=== PATIENT | female | born 1935 | race Two or more races ===

== ENCOUNTER 2021-02-08 12:50 | Inpatient (IN) | payer OTHER ==
[~2021-02-08] VITALS: Ht 165.1 cm; Wt 72.0 kg
[2021-02-08] MEDS ORDERED: ONDANSETRON HCL 4 MG/2 ML VIAL IV ONE (15:30)
[2021-02-08] MEDS ORDERED: HYDROmorphone HCL 2 MG/ML VL IV ONE (15:30)
[2021-02-08] MEDS ORDERED: SODIUM CHLORIDE 0.9% 1,000 ML IV ONE ×2 (15:30→18:30)
[2021-02-08 19:31] LABS: Basophils # (auto) 0 10 ^3/uL (0-0.2); Basophils % (auto) 0.1 % (0.0-2.0); Eosinophils # (auto) 0 10 ^3/uL (0-0.8); Eosinophils % (auto) 0.1 % (0.0-7.0); Hematocrit 36.5 % (36.0-46.0); Hemoglobin 12.3 g/dL (12.2-16.2); Lymphocytes # (auto) 1.1 10 ^3/uL (0.4-5.4); Mean Corpuscular Hemoglobin 30.2 pg (28.0-32.0); Mean Corpuscular Hgb Conc. 33.7 g/dL (32.0-36.0); Mean Corpuscular Volume 89.5 fL (80.0-100.0); Monocytes # (auto) 0.7 10 ^3/uL (0-1.3); Monocytes % (auto) 4.2 % (0.0-12.0); Neutrophils # (auto) 15.7 10 ^3/uL (1.6-8.6); Neutrophils % (auto) 89.6 % (37.0-80.0); Red Blood Cells 4.08 10^6/uL (4.0-5.20); Red Cell Distribution Width 14.1 % (11.8-14.3); White Blood Cell 17.5 10^3/uL (4.4-10.8)
[2021-02-08 19:49] LABS: Albumin 2.8 g/dL (3.4-5.0); Anion Gap 9 (5-15); Blood Urea Nitrogen 29 mg/dL (7-18); Calcium 8.4 mg/dL (8.5-10.1); Carbon Dioxide 20 mmol/L (21-32); Chloride 110 mmol/L (98-107); Glucose 219 mg/dL (74-106); Magnesium 2.2 mg/dL (1.6-2.6); Potassium 4.3 mmol/L (3.5-5.1); Sodium 139 mmol/L (136-145)
[2021-02-08 19:51] LABS: BUN/Creatinine Ratio 28.7; GFR African American 67 mL/min; GFR Non-African American 56 mL/min
[2021-02-08 19:54] LABS: Alanine Aminotransferase 27 U/L (13-56); Alkaline Phosphatase 56 U/L (45-117); Aspartate Aminotransferase 31 U/L (15-37); Total Protein 6.3 g/dL (6.4-8.2)
[2021-02-08] MEDS ORDERED: DEXTROSE (50%) 50ML SYRG IV PRN (22:15)
[2021-02-08] MEDS ORDERED: DOCUSATE SOD 100 MG CAP PO PRN (22:15)
[2021-02-08] MEDS ORDERED: ONDANSETRON HCL 4 MG/2 ML VIAL IV PRN (22:15)
[2021-02-08] MEDS ORDERED: ACETAMINOPHEN 325 MG TAB PO PRN (22:15)
[2021-02-08] MEDS ORDERED: NITROGLYCERIN 0.4 MG SL TAB SL PRN (23:15)
[2021-02-08] MEDS ORDERED: MORPHINE SULFATE INJECTION 2 MG/ML SYRG IV PRN (23:15)
[2021-02-08] MEDS: SODIUM CHLORIDE 0.9% 1,000 ML IV SCH (23:59)
[2021-02-09 01:20] VITALS: BP 158/66
[2021-02-09] MEDS ORDERED: SIMV-8 PO (02:52)
[2021-02-09] MEDS ORDERED: LISI20TA28 PO (02:52)
[2021-02-09 05:00] VITALS: BP 159/67
[2021-02-09] MEDS: ACCU-CHEK COMFORT CURVE STRIP VI SCH ×4 (06:18→22:19)
[2021-02-09] MEDS: HYDROcodone-ACET 5/325MG TAB PO PRN ×3 (06:24→20:43)
[2021-02-09] MEDS: InsuLIN REG 1unit/0.01ml Soln (100units/ml) SC SCH ×4 (06:24→22:27)
[2021-02-09 06:37] LABS: Basophils # (auto) 0 10 ^3/uL (0-0.2); Basophils % (auto) 0.1 % (0.0-2.0); Eosinophils # (auto) 0 10 ^3/uL (0-0.8); Lymphocytes # (auto) 1.7 10 ^3/uL (0.4-5.4); Lymphocytes % (auto) 15.1 % (10.0-50.0); Mean Corpuscular Hemoglobin 30.1 pg (28.0-32.0); Mean Corpuscular Hgb Conc. 34.2 g/dL (32.0-36.0); Mean Corpuscular Volume 88.1 fL (80.0-100.0); Monocytes # (auto) 0.9 10 ^3/uL (0-1.3); Monocytes % (auto) 7.8 % (0.0-12.0); Neutrophils # (auto) 8.6 10 ^3/uL (1.6-8.6); Red Blood Cells 3.64 10^6/uL (4.0-5.20); Red Cell Distribution Width 13.6 % (11.8-14.3); White Blood Cell 11.2 10^3/uL (4.4-10.8)
[2021-02-09 06:51] LABS: Albumin 2.7 g/dL (3.4-5.0); Calcium 8.1 mg/dL (8.5-10.1); Potassium 4.4 mmol/L (3.5-5.1)
[2021-02-09 06:57] LABS: BUN/Creatinine Ratio 27.8; Bilirubin, Total 0.8 mg/dL (0.2-1.0); Total Protein 5.8 g/dL (6.4-8.2)
[2021-02-09 09:00] VITALS: BP 145/76
[2021-02-09] MEDS: ENOXAPARIN SOD 40 MG/0.4 ML SYRINGE SC SCH (09:19)
[2021-02-09] MEDS: FAMOTIDINE (10MG/ML) 2ML VL IV SCH (09:19)
[2021-02-09] MEDS: MULTIPLE VITAMIN TAB PO SCH (09:21)
[2021-02-09] MEDS: ASCORBIC ACID 500 MG TAB PO SCH ×2 (09:21→22:27)
[2021-02-09] MEDS: ZINC SULFATE 220mg CAP or TAB PO SCH (09:22)
[2021-02-09] MEDS: LISINOPRIL 20 MG TAB PO SCH (09:23)
[2021-02-09 09:37] LABS: INR 1.17 (0.9-1.15)
[2021-02-09 11:58] LABS: Urine Bacteria NONE SEEN /hpf (None Seen); Urine Blood 1+ /uL (Negative); Urine Budding Yeast MODERATE /hpf (None Seen); Urine Specific Gravity 1.019 (1.001-1.035); Urine WBC 2537 /hpf (0 - 5); Urine WBC Clumps PRESENT /hpf (None Seen)
[2021-02-09 13:00] VITALS: BP 141/76
[2021-02-09 17:05] VITALS: BP 146/77
[2021-02-09] MEDS: SODIUM CHLORIDE 0.9% 1,000 ML IV SCH (17:19)
[2021-02-09 22:00] VITALS: BP 123/53
[2021-02-09] MEDS: cefTRIAXone 1GM/50ML D5W 50 ML IV SCH ×2 (22:27)
[2021-02-10 05:00] VITALS: BP 153/68
[2021-02-10] MEDS: ACCU-CHEK COMFORT CURVE STRIP VI SCH ×4 (06:14→21:51)
[2021-02-10] MEDS: InsuLIN REG 1unit/0.01ml Soln (100units/ml) SC SCH ×4 (06:20→21:59)
[2021-02-10] MEDS: hydrALAZINE HCL 20 MG/ML VL IV PRN ×2 (06:25→23:07)
[2021-02-10] MEDS: SODIUM CHLORIDE 0.9% 1,000 ML IV SCH (07:35)
[2021-02-10 07:36] LABS: Basophils # (auto) 0.1 10 ^3/uL (0-0.2); Basophils % (auto) 0.5 % (0.0-2.0); Eosinophils # (auto) 0 10 ^3/uL (0-0.8); Eosinophils % (auto) 0.2 % (0.0-7.0); Hematocrit 29.1 % (36.0-46.0); Lymphocytes # (auto) 3.8 10 ^3/uL (0.4-5.4); Lymphocytes % (auto) 30.9 % (10.0-50.0); Mean Corpuscular Hemoglobin 30.3 pg (28.0-32.0); Mean Corpuscular Hgb Conc. 34.4 g/dL (32.0-36.0); Mean Corpuscular Volume 88.1 fL (80.0-100.0); Monocytes % (auto) 8.2 % (0.0-12.0); Neutrophils # (auto) 7.3 10 ^3/uL (1.6-8.6); Neutrophils % (auto) 60.2 % (37.0-80.0); Nucleated Red Blood Cells % 0.1 %; Red Cell Distribution Width 14.2 % (11.8-14.3); White Blood Cell 12.1 10^3/uL (4.4-10.8)
[2021-02-10 08:05] LABS: INR 1.11 (0.9-1.15); Partial Thromboplastin Time 26.8 sec (23.6-33.0)
[2021-02-10 08:07] LABS: BUN/Creatinine Ratio 37.7; Calcium 7.8 mg/dL (8.5-10.1)
[2021-02-10 09:00] VITALS: BP 141/59
[2021-02-10] MEDS: ZINC SULFATE 220mg CAP or TAB PO SCH (10:00)
[2021-02-10] MEDS: MULTIPLE VITAMIN TAB PO SCH (10:00)
[2021-02-10] MEDS: LISINOPRIL 20 MG TAB PO SCH (10:00)
[2021-02-10] MEDS: ASCORBIC ACID 500 MG TAB PO SCH ×2 (10:00→21:51)
[2021-02-10] MEDS: ENOXAPARIN SOD 40 MG/0.4 ML SYRINGE SC SCH (10:00)
[2021-02-10] MEDS: FAMOTIDINE (10MG/ML) 2ML VL IV SCH (10:08)
[2021-02-10] MEDS ORDERED: ceFAZolin 1GM/50ML 100 ML IV ONE (12:10)
[2021-02-10] MEDS ORDERED: fentaNYL CITRATE 100 MCG/2 ML VL ONE (12:12)
[2021-02-10] MEDS ORDERED: MIDAZOLAM HCL 2MG/2ML 2ml VIAL (1mg/ml) ONE (12:12)
[2021-02-10] MEDS ORDERED: NEOSTIGMINE 1 MG/ML INJ (10mg/10ML VIAL) ONE (12:12)
[2021-02-10] MEDS ORDERED: ROCURONIUM 10MG/ML 10ML VIAL IV ONE (12:12)
[2021-02-10] MEDS ORDERED: GLYCOPYRROLATE 0.2 MG/ML 1ML VIAL ONE (12:12)
[2021-02-10] MEDS ORDERED: fentaNYL CITRATE 5 ML ONE (12:12)
[2021-02-10] MEDS ORDERED: ONDANSETRON HCL 4 MG/2 ML VIAL ONE (12:12)
[2021-02-10] MEDS ORDERED: ETOMIDATE (2MG/ML) 20ML VIAL IV ONE (12:12)
[2021-02-10] MEDS ORDERED: BUPIVACAINE 0.5% MPF INJ 30ML SDV IJ ONE (12:47)
[2021-02-10 13:00] VITALS: BP 136/88
[2021-02-10] MEDS ORDERED: TRANEXAMIC ACID 20 ML ONE (13:35)
[2021-02-10] MEDS ORDERED: ACCU-CHEK COMFORT CURVE STRIP VI ONE (17:30)
[2021-02-10] MEDS ORDERED: ONDANSETRON HCL 4 MG/2 ML VIAL IV PRN (17:30)
[2021-02-10] MEDS ORDERED: HYDROmorphone HCL 2 MG/ML VL IV PRN ×2 (17:30→23:45)
[2021-02-10] MEDS: HYDROcodone-ACET 5/325MG TAB PO PRN (20:21)
[2021-02-10] MEDS: cefTRIAXone 1GM/50ML D5W 50 ML IV SCH (21:51)
[2021-02-10 22:00] VITALS: BP 162/69
[2021-02-11] MEDS ORDERED: KETOROLAC TROMETH 30 MG/ML 1ML VIAL IV ONE (00:30)
[2021-02-11] MEDS: SODIUM CHLORIDE 0.9% 1,000 ML IV SCH (01:33)
[2021-02-11 05:00] VITALS: BP 161/66
[2021-02-11] MEDS: ACCU-CHEK COMFORT CURVE STRIP VI SCH ×4 (06:36→22:12)
[2021-02-11] MEDS: InsuLIN REG 1unit/0.01ml Soln (100units/ml) SC SCH ×4 (06:40→22:13)
[2021-02-11 09:13] VITALS: BP 141/62
[2021-02-11] MEDS: ASCORBIC ACID 500 MG TAB PO SCH ×2 (10:04→22:19)
[2021-02-11] MEDS: ZINC SULFATE 220mg CAP or TAB PO SCH (10:04)
[2021-02-11] MEDS: MULTIPLE VITAMIN TAB PO SCH (10:04)
[2021-02-11] MEDS: LISINOPRIL 20 MG TAB PO SCH (10:05)
[2021-02-11] MEDS: ENOXAPARIN SOD 40 MG/0.4 ML SYRINGE SC SCH (10:05)
[2021-02-11] MEDS: FAMOTIDINE (10MG/ML) 2ML VL IV SCH (10:08)
[2021-02-11 13:00] VITALS: BP 142/64
[2021-02-11 17:04] VITALS: BP 146/66
[2021-02-11 21:38] VITALS: BP 161/66
[2021-02-11 21:46] VITALS: BP 148/68
[2021-02-11] MEDS: cefTRIAXone 1GM/50ML D5W 50 ML IV SCH (22:20)
[2021-02-12 05:00] VITALS: BP 165/71
[2021-02-12] MEDS: hydrALAZINE HCL 20 MG/ML VL IV PRN (05:34)
[2021-02-12] MEDS: ACCU-CHEK COMFORT CURVE STRIP VI SCH ×3 (06:43→17:18)
[2021-02-12] MEDS: InsuLIN REG 1unit/0.01ml Soln (100units/ml) SC SCH ×3 (06:43→17:18)
[2021-02-12 08:00] VITALS: BP 118/59
[2021-02-12] MEDS: ASCORBIC ACID 500 MG TAB PO SCH (09:50)
[2021-02-12] MEDS: ENOXAPARIN SOD 40 MG/0.4 ML SYRINGE SC SCH (09:50)
[2021-02-12] MEDS: FAMOTIDINE (10MG/ML) 2ML VL IV SCH (09:50)
[2021-02-12] MEDS: ZINC SULFATE 220mg CAP or TAB PO SCH (09:50)
[2021-02-12] MEDS: MULTIPLE VITAMIN TAB PO SCH (09:50)
[2021-02-12] MEDS: HYDROcodone-ACET 5/325MG TAB PO PRN ×2 (09:51→16:57)
[2021-02-12] MEDS: LISINOPRIL 20 MG TAB PO SCH (09:52)
[2021-02-12 13:00] VITALS: BP 141/56
[2021-02-12 16:30] VITALS: BP 148/60
== END 2021-02-12 18:30 | disposition home or self-care (01) | DRG 493 ==
LOC: EDBD 12:50 → ER 12:50 → OVERFLOW 23:02 → WEST WING 23:49
PROVIDERS: ADMIT Nurse Practitioner Family; ATTEND Internal Medicine Geriatric Medicine
PROC: 0RSKXZZ Reposition Left Shoulder Joint, External Approach (ICD-10-PCS; 2021-02-10)
PROC: 0PSC06Z Reposition Right Humeral Head with Intramedullary Internal Fixation Device, Open Approach (ICD-10-PCS; principal; 2021-02-10 14:07)
DX: S42.201A Unspecified fracture of upper end of right humerus, initial encounter for closed fracture (principal); N39.0 Urinary tract infection, site not specified; E44.0 Moderate protein-calorie malnutrition; S02.2XXA Fracture of nasal bones, initial encounter for closed fracture; D72.829 Elevated white blood cell count, unspecified; E88.09 Other disorders of plasma-protein metabolism, not elsewhere classified; E11.65 Type 2 diabetes mellitus with hyperglycemia; I10 Essential (primary) hypertension; E78.5 Hyperlipidemia, unspecified; Z20.822 Contact with and (suspected) exposure to COVID-19; W18.39XA Other fall on same level, initial encounter; S43.005A Unspecified dislocation of left shoulder joint, initial encounter; Z79.84 Long term (current) use of oral hypoglycemic drugs; Z88.8 Allergy status to other drugs, medicaments and biological substances; Y93.89 Activity, other specified; Y92.098 Other place in other non-institutional residence as the place of occurrence of the external cause; Y99.8 Other external cause status
CPT/HCPCS: 36415; 70450; 70486; 71045; 72125; 73020; 73030; 73060; 76000; 80048; 80053; 80061; 81001; 82962; 83036; 83735; 85025; 85610; 85730; 86850; 86870; 86900; 86901; 87040; 87426; 93005; 93306; 96361; 96374; 96375; G0378; J0690; J0696; J1815; J1885; J2250; J2405; J3490